=== PATIENT | female | born 1975 | race Caucasian/White ===

== ENCOUNTER 2021-07-27 19:17 | Emergency (ER) | payer MEDICAID ==
[~2021-07-27] VITALS: Ht 162.6 cm; Wt 59.0 kg
[~2021-07-27 19:17] MED LIST: LEVO50TA PO
--- NOTE | 2021-07-27 20:06 | NUR ---
Patient walked into ER with steady gait c/o blood in stool on defecation. Patient is A/Ox4, not in distress
--- NOTE | 2021-07-27 20:09 | NUR ---
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
[2021-07-27 20:22] LABS: HEMATOCRIT 36.3 % (31.2-41.9); MEAN CORPUSCULAR VOLUME 89.8 fL (75.5-95.3); PLATELET COUNT (AUTO) 281 K/uL (179-408)
[2021-07-27 20:27] LABS: CREATININE 0.9 mg/dL (0.6-1.3); POTASSIUM 3.6 mmol/L (3.5-5.1)
[2021-07-27] MEDS ORDERED: HYDR25SU33 RC (20:28)
[2021-07-27] MEDS ORDERED: MAGNESIUM CITRATE 296 ML BOTTLE PO ONE (20:45)
--- NOTE | 2021-07-27 20:59 | NUR ---
Patient discharged to home in stable condition. Written and verbal after care instructions given. Patient verbalizes understanding of instructions. Stressed follow up or return to ER for worsening s/s. Patient is A/Ox4, no SOB, not in distress
[2021-07-27 21:01] VITALS: BP 110/68
== END 2021-07-27 21:00 | disposition home or self-care (01) ==
LOC: ER 19:21
DX: K64.4 Residual hemorrhoidal skin tags (principal); Z88.6 Allergy status to analgesic agent; Z85.3 Personal history of malignant neoplasm of breast; Z92.21 Personal history of antineoplastic chemotherapy; E03.9 Hypothyroidism, unspecified; Z79.890 Hormone replacement therapy
CPT/HCPCS: 36415; 85025; A4663

== ENCOUNTER 2021-08-22 17:13 | Emergency (ER) | payer MEDICAID ==
[~2021-08-22] VITALS: Ht 162.6 cm; Wt 59.0 kg
[~2021-08-22 17:13] MED LIST changes: +HYDR25SU33 RC
--- NOTE | 2021-08-22 17:35 | NUR ---
DR ESPINOZA WITH PATIENT FOR EVALUATION.
[2021-08-22 18:00] LABS: HEMATOCRIT 35.8 % (31.2-41.9); MEAN CORPUSCULAR HEMOGLOBIN 30.6 uug (24.7-32.8); MEAN CORPUSCULAR VOLUME 90.3 fL (75.5-95.3); PLATELET COUNT (AUTO) 259 K/uL (179-408)
[2021-08-22 18:08] LABS: CREATININE 0.7 mg/dL (0.6-1.3); POTASSIUM 3.8 mmol/L (3.5-5.1)
[2021-08-22 18:13] LABS: BILIRUBIN,DIRECT 0.1 mg/dL (0.0-0.2); BILIRUBIN,TOTAL 0.5 mg/dL (0.2-1.0); TOTAL PROTEIN, SERUM 7.6 g/dL (6.4-8.2)
--- NOTE | 2021-08-22 18:26 | NUR ---
DR ESPINOZA REVIEWED TEST RESULTS WITH PATIENT. DISCHARGE INSTRUCTIONS RENDERED PER MD ORDERS.
[2021-08-22 18:28] VITALS: BP 114/75
== END 2021-08-22 18:28 | disposition home or self-care (01) ==
LOC: ER 17:14
DX: R53.83 Other fatigue (principal); E03.9 Hypothyroidism, unspecified; Z79.890 Hormone replacement therapy; Z85.3 Personal history of malignant neoplasm of breast; Z92.21 Personal history of antineoplastic chemotherapy; Z88.6 Allergy status to analgesic agent
CPT/HCPCS: 36415; 85025; A4663

== ENCOUNTER 2021-12-12 17:48 | Emergency (ER) | payer MEDICAID ==
[~2021-12-12] VITALS: Ht 162.6 cm; Wt 63.5 kg
[2021-12-12] MEDS ORDERED: LEVO88TA2 PO (18:12)
--- NOTE | 2021-12-12 19:15 | NUR ---
Change of shift report from Lin MELVIN given.
[2021-12-12 19:34] LABS: HEMATOCRIT 37.7 % (31.2-41.9); MEAN CORPUSCULAR HEMOGLOBIN 30.7 uug (24.7-32.8); MEAN CORPUSCULAR VOLUME 92.3 fL (75.5-95.3); PLATELET COUNT (AUTO) 247 K/uL (179-408)
[2021-12-12 19:35] LABS: CREATININE 0.9 mg/dL (0.6-1.3)
[2021-12-12 19:40] LABS: BILIRUBIN,DIRECT 0.1 mg/dL (0.0-0.2); BILIRUBIN,TOTAL 0.6 mg/dL (0.2-1.0); TOTAL PROTEIN, SERUM 7.7 g/dL (6.4-8.2)
[2021-12-12 19:48] LABS: THYROID STIMULATING HORMONE 2.937 mIU/mL (0.358-3.740)
[2021-12-12 19:49] LABS: *BILIRUBIN,URIN NEGATIVE (NEGATIVE); *BLOOD, URINE NEGATIVE (NEGATIVE); *CLARITY,URINE CLEAR (CLEAR); *KETONES,URINE NEGATIVE (NEGATIVE); *UROBILINOGEN,URINE 0.2 E.U./dl (NORMAL); LEUKOCYTE ESTERASE ,URINE NEGATIVE (NEGATIVE); NITRITE, URINE NEGATIVE (NEGATIVE); UGLUCOSE NEGATIVE (NEGATIVE)
[2021-12-12 19:51] LABS: *COLOR,URINE LIGHT YELLOW (YELLOW); *URINE HCG, QUAL NEGATIVE (NEGATIVE)
[2021-12-12 20:04] LABS: *AMPHETAMINE, URINE NEGATIVE (NEGATIVE); *CANNABINOID, URINE NEGATIVE (NEGATIVE); *COCCAINE, URINE NEGATIVE (NEGATIVE); *OPIATE, URINE NEGATIVE (NEGATIVE); *PHENCYCLIDINE SCREEN,URINE NEGATIVE (NEGATIVE)
[2021-12-12 20:57] VITALS: BP 118/72
--- NOTE | 2021-12-12 20:57 | NUR ---
Patient discharged to home in stable condition. Written and verbal after care instructions given. Patient verbalizes understanding of instructions. Stressed follow up or return to ER for worsening s/s. Patient is a/ox4, NAD noted. Patient is able to walk with steadyt gait
== END 2021-12-12 20:58 | disposition home or self-care (01) ==
LOC: ER 17:48
DX: R53.83 Other fatigue (principal); E03.9 Hypothyroidism, unspecified; Z79.890 Hormone replacement therapy; N92.6 Irregular menstruation, unspecified; Z85.3 Personal history of malignant neoplasm of breast; Z92.21 Personal history of antineoplastic chemotherapy; Z90.11 Acquired absence of right breast and nipple; Z88.5 Allergy status to narcotic agent
CPT/HCPCS: 36415; 84443; 84703; 85025; 93005; A4663